=== PATIENT | male | born 1975 | race Caucasian/White ===

== ENCOUNTER 2016-03-20 14:25 | Emergency (ER) | payer OTHER ==
[~2016-03-20] VITALS: Ht 195.6 cm; Wt 110.7 kg
[~2016-03-20 14:25] MED LIST: ADVIL PM1 TABLET PO; AMLODIPINE BESYL5 MG PO; ASPIR 8181 M1 PO; FOLIC ACID1 MG PO; LIBRIUM25 MG PO; LOSARTAN POTAS100 MG PO; METOPROLOL SUCC50 MG PO; PRILOSEC OTC20 MG PO; TRIBENZOR 40-51 EAC5 PO; VITAMIN B-1100 MG PO
[2016-03-20 15:38] LABS: ADD MIUA? YES; BILIRUBIN MODERATE; BLOOD NEGATIVE; GLUCOSE (STRIP) NEGATIVE; KETONES 15; LEUKOCYTES NEGATIVE; NITRITE POSITIVE; PROTEIN (STRIP) 100; SPECIFIC GRAVITY 1.032 (1.000-1.030); UROBILINOGEN >= 8.0 MG/DL (0.2-1.0)
[2016-03-20 15:40] LABS: COLOR ORANGE ((YELLOW))
[2016-03-20 15:55] LABS: AMPHETAMINE NEGATIVE (500 ng/mL); BARBITURATES NEGATIVE (200 ng/mL); BENZODIAZEPINES NEGATIVE (150 ng/mL); COCAINE NEGATIVE (150 ng/mL); INTERNAL CONTROLS VALID? YES; METHADONE NEGATIVE (200 ng/mL); METHAMPHETAMINE NEGATIVE (500 ng/mL); OPIATES (MORPHINE) NEGATIVE (100 ng/mL); OXYCODONE NEGATIVE (100 ng/mL); PHENCYCLIDINE NEGATIVE (25 ng/mL); PROPOXYPHENE NEGATIVE (300 ng/mL); THC CANNABINOIDS NEGATIVE (50 ng/mL); TRICYCLIC ANTIDEPRESSANTS NEGATIVE (300 ng/mL)
[2016-03-20 15:58] LABS: ICTOTEST POSITIVE
[2016-03-20 15:58] LABS: CHLORIDE 99 mEq/L (99-109); POTASSIUM 2.7 mEq/L (3.7-5.4); SODIUM 142 mEq/L (136-147)
[2016-03-20 16:00] LABS: GLUCOSE 129 mg/dL (70-99)
[2016-03-20 16:01] LABS: ANION GAP 20 MEQ/L (2-14)
[2016-03-20 16:02] LABS: TOTAL BILIRUBIN 1.8 mg/dL (0.0-1.0)
[2016-03-20 16:03] LABS: SERUM ETHYL ALCOHOL 341 mg/dL
[2016-03-20 16:04] LABS: ALKALINE PHOSPHATASE 123 IU/L (3-129); GFR ESTIMATE (CALCULATED) > 59 mL/min/
[2016-03-20 16:05] LABS: UREA NITROGEN (BUN) 8 mg/dL (9-23)
[2016-03-20 16:39] LABS: BACTERIA 2+ /HPF; CASTS NONE SEEN /LPF; CRYSTALS NONE SEEN; EPITHELIAL CELLS RARE /HPF; MUCUS RARE /LPF; RED BLOOD CELLS 0-5 /HPF (0-5); WHITE BLOOD CELLS 0-5 /HPF (0-5)
[2016-03-20] MEDS ORDERED: LIBRIUM25 MG PO (18:48)
[2016-03-20] MEDS ORDERED: CEFPODOXIME PR100 MG PO (18:50)
[2016-03-20 20:09] VITALS: BP 108/72
== END 2016-03-20 20:15 | disposition home or self-care (01) ==
LOC: EXP 14:25 → EME 14:25 → EXP 20:15
PROVIDERS: Physician Assistant
DX: F10.229 Alcohol dependence with intoxication, unspecified (principal); R20.0 Anesthesia of skin; R05 Cough; Y90.8 Blood alcohol level of 240 mg/100 ml or more; I10 Essential (primary) hypertension
CPT/HCPCS: 80053; 81003; 99281; 99283; G0480

== ENCOUNTER 2016-06-13 02:15 | Observation (INO) | payer OTHER ==
[~2016-06-13] VITALS: Ht 195.6 cm; Wt 113.6 kg
[~2016-06-13 02:15] MED LIST changes: +CEFPODOXIME PR100 MG PO
[2016-06-13 02:58] LABS: HEMATOCRIT 37.6 % (38.0-50.0); MCH 36.7 PG (29.0-34.0); MCV 99.2 FL (86-99); MEAN PLAT.VOLUME 11.2 uM^3 (9.0-12.4); PLATELET COUNT 113 K/uL (156-360); RBC DIS.WIDTH-SD 57.8 % (39-53); RED BLOOD COUNT 3.79 M/uL (4.00-5.50); WHITE BLOOD COUNT 3.5 K/uL (4.1-10.2)
[2016-06-13 03:08] LABS: CHLORIDE 92 mEq/L (99-109); POTASSIUM 3.3 mEq/L (3.7-5.4); SODIUM 135 mEq/L (136-147)
[2016-06-13 03:10] LABS: GLUCOSE 101 mg/dL (70-99)
[2016-06-13 03:11] LABS: ANION GAP 25 MEQ/L (2-14)
[2016-06-13 03:12] LABS: TOTAL BILIRUBIN 3.1 mg/dL (0.0-1.0)
[2016-06-13 03:14] LABS: ALKALINE PHOSPHATASE 139 IU/L (3-129); GFR ESTIMATE (CALCULATED) > 59 mL/min/
[2016-06-13 03:15] LABS: UREA NITROGEN (BUN) 6 mg/dL (9-23)
[2016-06-13 03:17] LABS: LIPASE 77 U/L (1.0-51.0)
[2016-06-13 04:32] LABS: CREATINE KINASE 299 IU/L (1-294)
[2016-06-13 04:45] LABS: ADD MIUA? YES; BILIRUBIN SMALL; BLOOD NEGATIVE; COLOR AMBER ((YELLOW)); GLUCOSE (STRIP) NEGATIVE; KETONES 20; LEUKOCYTES NEGATIVE; NITRITE NEGATIVE; PROTEIN (STRIP) 30; SPECIFIC GRAVITY 1.014 (1.000-1.030)
[2016-06-13 04:50] LABS: BACTERIA RARE /HPF; EPITHELIAL CELLS RARE /HPF; HYALINE CASTS 0-5 /LPF; MUCUS TRACE /LPF; RED BLOOD CELLS 0-5 /HPF (0-5); UCUL ADDED? NO; WHITE BLOOD CELLS 0-5 /HPF (0-5)
[2016-06-13] MEDS ORDERED: LIBRIUM25 MG PO (05:09)
[2016-06-13] MEDS ORDERED: ZOFRAN4 MG PO (05:09)
[2016-06-13] MEDS ORDERED: PERCOCET 5/31 TABLET PO (07:45)
[2016-06-13] MEDS ORDERED: METOPROLOL SUCC50 MG PO (07:45)
[2016-06-13] MEDS ORDERED: [UNRECOGNIZED DRUG - OTHER] PO (07:46)
[2016-06-13] MEDS ORDERED: ALFUZOSIN HCL10 MG PO (07:46)
[2016-06-13] MEDS ORDERED: TRIBENZOR 40-51 EAC5 PO (08:11)
[2016-06-13 08:17] LABS: MAGNESIUM 1.6 mg/dL (1.3-2.7)
[2016-06-13 09:15] VITALS: BP 158/92
[2016-06-13 11:53] LABS: SERUM ETHYL ALCOHOL < 10 mg/dL
[2016-06-13 12:17] VITALS: BP 161/71
[2016-06-13 19:00] VITALS: BP 149/93
[2016-06-13 23:38] VITALS: BP 130/90
[2016-06-14 02:16] LABS: CHLORIDE 100 mEq/L (99-109); SODIUM 138 mEq/L (136-147)
[2016-06-14 02:19] LABS: GLUCOSE 105 mg/dL (70-99)
[2016-06-14 02:20] LABS: ANION GAP 12 MEQ/L (2-14)
[2016-06-14 02:21] LABS: MAGNESIUM 1.2 mg/dL (1.3-2.7); POTASSIUM 2.1 mEq/L (3.7-5.4)
[2016-06-14 02:23] LABS: ALKALINE PHOSPHATASE 112 IU/L (3-129); GFR ESTIMATE (CALCULATED) > 59 mL/min/
[2016-06-14 02:24] LABS: UREA NITROGEN (BUN) 5 mg/dL (9-23)
[2016-06-14 02:25] LABS: DIRECT BILIRUBIN 1.9 mg/dL (0.0-0.3)
[2016-06-14 05:48] LABS: ANION GAP 7 MEQ/L (2-14); CHLORIDE 98 MEQ/L (99-109); GFR ESTIMATE (CALCULATED) > 59 mL/min/; GLUCOSE 108 mg/dL (70-99); SAMPLE HEMOLYSIS CHECK 0; SAMPLE ICTERIC CHECK 0; SAMPLE LIPEMIA CHECK 0; SODIUM 139 MEQ/L (136-147); UREA NITROGEN (BUN) 5 mg/dL (9-23)
[2016-06-14 05:54] LABS: POTASSIUM 2.9 MEQ/L (3.7-5.4)
[2016-06-14 09:10] LABS: MAGNESIUM 2.1 mg/dl (1.3-2.7)
[2016-06-14 11:00] VITALS: BP 172/96
[2016-06-14 12:35] LABS: MAGNESIUM 2.3 mg/dl (1.3-2.7); POTASSIUM 2.6 MEQ/L (3.7-5.4)
[2016-06-14 13:45] VITALS: BP 133/94
[2016-06-14 16:32] VITALS: BP 140/92
[2016-06-14 19:00] VITALS: BP 142/90
[2016-06-14 23:58] VITALS: BP 137/91
[2016-06-15 03:55] VITALS: BP 130/88
[2016-06-15 08:00] VITALS: BP 149/97
== END 2016-06-15 09:33 | disposition home or self-care (01) ==
LOC: EME 02:15 → EDOF 07:43 → 5WEST 07:43 → EDOF 07:43 → 5WEST 08:51
PROVIDERS: Hospitalist; Internal Medicine; Physician Assistant
DX: F10.231 Alcohol dependence with withdrawal delirium (principal); M54.5 Low back pain; I10 Essential (primary) hypertension; K21.9 Gastro-esophageal reflux disease without esophagitis; E86.0 Dehydration; K80.20 Calculus of gallbladder without cholecystitis without obstruction; D72.819 Decreased white blood cell count, unspecified; D69.6 Thrombocytopenia, unspecified; E87.6 Hypokalemia; K76.0 Fatty (change of) liver, not elsewhere classified; R16.0 Hepatomegaly, not elsewhere classified; R45.1 Restlessness and agitation
CPT/HCPCS: 74176; 74183; 80048; 80053; 81003; 82140; 82248; 82550; 83690; 83735; 84100; 84132 91; 85027; 93005; 99281; 99284; G0378; G0480; J1630; J1650; J1885; J2060; J2405; J3411; J3475; J7030; J7040; J7050

== ENCOUNTER 2016-09-13 13:29 | Emergency (ER) | payer OTHER ==
[~2016-09-13] VITALS: Ht 195.6 cm; Wt 104.7 kg
[~2016-09-13 13:29] MED LIST changes: +ALFUZOSIN HCL10 MG PO; +PERCOCET 5/31 TABLET PO; +ZOFRAN4 MG PO; +[UNRECOGNIZED DRUG - OTHER] PO
[2016-09-13 14:58] LABS: EOSINOPHIL (%) 0.3 % (0-5); HEMATOCRIT 42.2 % (38.0-50.0); LYMPHOCYTE COUNT 0.9 K/uL (1.0-2.8); MCH 35.8 PG (29.0-34.0); MCHC 35.8 G/DL (30.0-36.0); MEAN PLAT.VOLUME 9.1 uM^3 (9.0-12.4); MONOCYTE (%) 17.9 % (3-12); MONOCYTE COUNT 0.6 K/uL (0-0.8); NEUTROPHIL (%) 56.7 % (45-76); PLATELET COUNT 102 K/uL (156-360); RBC DIS.WIDTH-CV 12.1 % (11.8-14.6); RBC DIS.WIDTH-SD 44.8 % (39-53); RED BLOOD COUNT 4.22 M/uL (4.00-5.50); WHITE BLOOD COUNT 3.5 K/uL (4.1-10.2)
[2016-09-13 15:11] LABS: CHLORIDE 99 mEq/L (99-109); SODIUM 140 mEq/L (136-147)
[2016-09-13 15:13] LABS: GLUCOSE 92 mg/dL (70-99)
[2016-09-13 15:14] LABS: ANION GAP 17 MEQ/L (2-14)
[2016-09-13 15:16] LABS: SERUM ETHYL ALCOHOL 394 mg/dL
[2016-09-13 15:17] LABS: GFR ESTIMATE (CALCULATED) > 59 mL/min/
[2016-09-13 15:18] LABS: UREA NITROGEN (BUN) 6 mg/dL (9-23)
[2016-09-13 15:43] LABS: ADD MIUA? NO; BILIRUBIN NEGATIVE; BLOOD NEGATIVE; COLOR YELLOW ((YELLOW)); GLUCOSE (STRIP) NEGATIVE; KETONES NEGATIVE; LEUKOCYTES NEGATIVE; NITRITE NEGATIVE; PROTEIN (STRIP) NEGATIVE; SPECIFIC GRAVITY 1.004 (1.000-1.030)
[2016-09-13 16:03] LABS: AMPHETAMINE NEGATIVE (500 ng/mL); BARBITURATES NEGATIVE (200 ng/mL); BENZODIAZEPINES PRESUMPTIVE POSITIVE (150 ng/mL); COCAINE NEGATIVE (150 ng/mL); INTERNAL CONTROLS VALID? YES; METHADONE NEGATIVE (200 ng/mL); METHAMPHETAMINE NEGATIVE (500 ng/mL); OPIATES (MORPHINE) NEGATIVE (100 ng/mL); OXYCODONE NEGATIVE (100 ng/mL); PHENCYCLIDINE NEGATIVE (25 ng/mL); PROPOXYPHENE NEGATIVE (300 ng/mL); THC CANNABINOIDS NEGATIVE (50 ng/mL); TRICYCLIC ANTIDEPRESSANTS NEGATIVE (300 ng/mL)
[2016-09-13 16:04] LABS: ADD MEDTOX COMMENT Y
[2016-09-13 16:38] LABS: BENZODIAZEPINES, URINE SCREEN POSITIVE (200 ng/mL)
[2016-09-13 20:08] VITALS: BP 152/99
== END 2016-09-13 20:09 | disposition left against medical advice (07) ==
LOC: EME 13:29
PROVIDERS: Emergency Medicine
DX: F10.129 Alcohol abuse with intoxication, unspecified (principal); E87.6 Hypokalemia; I10 Essential (primary) hypertension; K21.9 Gastro-esophageal reflux disease without esophagitis
CPT/HCPCS: 80048; 81003; 84999; 85025; 99281; 99285; G0480

== ENCOUNTER 2017-01-21 12:53 | Emergency (ER) | payer OTHER ==
[2017-01-21] MEDS ORDERED: FLUOXETINE HCL20 MG PO (20:21)
[2017-01-21] MEDS ORDERED: TYLENOL EXTRA500 MG PO (20:22)
[2017-01-21] MEDS ORDERED: FISH OIL 1,0001 EAC7 PO (20:24)
[2017-01-21] MEDS ORDERED: ASCORBIC ACID100 MG PO (20:25)
== END 2017-01-21 14:29 | disposition left against medical advice (07) ==
LOC: EME 12:53
DX: Z53.21 Procedure and treatment not carried out due to patient leaving prior to being seen by health care provider (principal)

== ENCOUNTER 2017-01-21 15:36 | Inpatient (IN) | payer OTHER ==
[~2017-01-21] VITALS: Ht 195.6 cm; Wt 106.6 kg
[2017-01-21 16:11] LABS: HEMATOCRIT 41.7 % (38.0-50.0); MCH 34.6 PG (29.0-34.0); MCHC 36.7 G/DL (30.0-36.0); MCV 94.3 FL (86-99); MEAN PLAT.VOLUME 8.9 uM^3 (9.0-12.4); PLATELET COUNT 165 K/uL (156-360); RBC DIS.WIDTH-CV 12.8 % (11.8-14.6); RED BLOOD COUNT 4.42 M/uL (4.00-5.50); WHITE BLOOD COUNT 5.5 K/uL (4.1-10.2)
[2017-01-21 16:21] LABS: CHLORIDE 99 mEq/L (99-109); POTASSIUM 3.2 mEq/L (3.7-5.4); SODIUM 140 mEq/L (136-147)
[2017-01-21 16:22] LABS: GLUCOSE 186 mg/dL (70-99)
[2017-01-21 16:24] LABS: ANION GAP 16 MEQ/L (2-14)
[2017-01-21 16:25] LABS: SERUM ETHYL ALCOHOL 374 mg/dL
[2017-01-21 16:26] LABS: GFR ESTIMATE (CALCULATED) > 59 mL/min/
[2017-01-21 16:27] LABS: UREA NITROGEN (BUN) 6 mg/dL (9-23)
[2017-01-21 16:32] LABS: TROP-I INTERPRETATION NEGATIVE; TROPONIN-I < 0.01 ng/mL (0.0-0.30)
[2017-01-21 20:10] LABS: TOTAL BILIRUBIN 0.5 mg/dL (0.0-1.0)
[2017-01-21 20:11] LABS: ALKALINE PHOSPHATASE 143 IU/L (3-129)
[2017-01-21 20:14] LABS: DIRECT BILIRUBIN 0.4 mg/dL (0.0-0.3)
[2017-01-21 20:15] LABS: LIPASE 96 U/L (1.0-51.0)
[2017-01-21] MEDS ORDERED: FLUOXETINE HCL20 MG PO (20:21)
[2017-01-21] MEDS ORDERED: TYLENOL EXTRA500 MG PO (20:22)
[2017-01-21] MEDS ORDERED: FISH OIL 1,0001 EAC7 PO (20:24)
[2017-01-21] MEDS ORDERED: ASCORBIC ACID100 MG PO (20:25)
[2017-01-21 21:21] LABS: AMPHETAMINE NEGATIVE (500 ng/mL); BARBITURATES NEGATIVE (200 ng/mL); BENZODIAZEPINES NEGATIVE (150 ng/mL); COCAINE NEGATIVE (150 ng/mL); INTERNAL CONTROLS VALID? YES; METHADONE NEGATIVE (200 ng/mL); METHAMPHETAMINE NEGATIVE (500 ng/mL); OPIATES (MORPHINE) NEGATIVE (100 ng/mL); OXYCODONE NEGATIVE (100 ng/mL); PHENCYCLIDINE NEGATIVE (25 ng/mL); PROPOXYPHENE NEGATIVE (300 ng/mL); THC CANNABINOIDS NEGATIVE (50 ng/mL); TRICYCLIC ANTIDEPRESSANTS NEGATIVE (300 ng/mL)
[2017-01-21 23:30] VITALS: BP 126/73
[2017-01-21 23:52] LABS: TROP-I INTERPRETATION NEGATIVE; TROPONIN-I 0.01 ng/mL (0.0-0.30)
[2017-01-22 03:16] VITALS: BP 137/73
[2017-01-22 05:29] LABS: HEMATOCRIT 36.3 % (38.0-50.0); MCH 33.7 PG (29.0-34.0); MCHC 35.5 G/DL (30.0-36.0); MCV 94.8 FL (86-99); MEAN PLAT.VOLUME 9.1 uM^3 (9.0-12.4); PLATELET COUNT 125 K/uL (156-360); RBC DIS.WIDTH-CV 13.1 % (11.8-14.6); RED BLOOD COUNT 3.83 M/uL (4.00-5.50); WHITE BLOOD COUNT 3.8 K/uL (4.1-10.2)
[2017-01-22 05:35] LABS: PROTHROMBIN TIME 10.9 SEC (10.2-12.9)
[2017-01-22 05:48] LABS: TROP-I INTERPRETATION NEGATIVE; TROPONIN-I 0.01 ng/mL (0.0-0.30)
[2017-01-22 05:54] LABS: ALKALINE PHOSPHATASE 102 IU/L (3-129); ANION GAP 13 MEQ/L (2-14); CHLORIDE 100 MEQ/L (99-109); GFR ESTIMATE (CALCULATED) > 59 mL/min/; GLUCOSE 86 mg/dL (70-99); POTASSIUM 2.9 MEQ/L (3.7-5.4); SAMPLE HEMOLYSIS CHECK 0; SAMPLE ICTERIC CHECK 0; SAMPLE LIPEMIA CHECK 0; SODIUM 142 MEQ/L (136-147); TOTAL BILIRUBIN 0.6 MG/DL (0.0-1.0); UREA NITROGEN (BUN) 7 mg/dL (9-23)
[2017-01-22 07:19] VITALS: BP 130/64
[2017-01-22 12:21] VITALS: BP 137/73
[2017-01-22 16:14] VITALS: BP 131/73
[2017-01-22 19:45] VITALS: BP 153/91
[2017-01-23] VITALS: BP 140/70
[2017-01-23 05:51] LABS: EOSINOPHIL (%) 0.8 % (0-5); HEMATOCRIT 35.3 % (38.0-50.0); IMMATURE GRANULOCYTE (%) 0.5 % (0.0-0.7); INSTRUMENT ABS NEUTROPHIL CT 2.1 K/uL; MCH 34.4 PG (29.0-34.0); MCHC 35.7 G/DL (30.0-36.0); MCV 96.4 FL (86-99); MEAN PLAT.VOLUME 9.5 uM^3 (9.0-12.4); MONOCYTE (%) 15.8 % (3-12); MONOCYTE COUNT 0.6 K/uL (0-0.8); NEUTROPHIL (%) 56.7 % (45-76); NEUTROPHIL COUNT 2.1 K/uL (1.8-6.4); PLATELET COUNT 114 K/uL (156-360); RBC DIS.WIDTH-CV 13.1 % (11.8-14.6); RBC DIS.WIDTH-SD 46.4 % (39-53); RED BLOOD COUNT 3.66 M/uL (4.00-5.50); WHITE BLOOD COUNT 3.7 K/uL (4.1-10.2)
[2017-01-23 05:56] LABS: ANION GAP 7 MEQ/L (2-14); CHLORIDE 97 MEQ/L (99-109); GFR ESTIMATE (CALCULATED) > 59 mL/min/; POTASSIUM 2.8 MEQ/L (3.7-5.4); SAMPLE HEMOLYSIS CHECK 0; SAMPLE ICTERIC CHECK 0; SAMPLE LIPEMIA CHECK 0; SODIUM 138 MEQ/L (136-147); UREA NITROGEN (BUN) 4 mg/dL (9-23)
[2017-01-23 05:57] LABS: GLUCOSE 112 mg/dL (70-99)
[2017-01-23 08:34] VITALS: BP 152/86
[2017-01-23 11:56] VITALS: BP 164/96
[2017-01-23 16:32] VITALS: BP 160/103
[2017-01-23 19:20] VITALS: BP 162/99
[2017-01-23 23:48] VITALS: BP 154/88
[2017-01-24 04:08] VITALS: BP 141/80
[2017-01-24 06:42] LABS: ANION GAP 7 MEQ/L (2-14); CHLORIDE 102 MEQ/L (99-109); GFR ESTIMATE (CALCULATED) > 59 mL/min/; GLUCOSE 97 mg/dL (70-99); SAMPLE HEMOLYSIS CHECK 0; SAMPLE ICTERIC CHECK 0; SAMPLE LIPEMIA CHECK 0; SODIUM 139 MEQ/L (136-147); UREA NITROGEN (BUN) 3 mg/dL (9-23)
[2017-01-24 06:55] LABS: POTASSIUM 3.5 MEQ/L (3.7-5.4)
[2017-01-24 08:37] VITALS: BP 144/90
[2017-01-24] MEDS ORDERED: CHEWABLE-VITE1 EACH PO (09:23)
[2017-01-24] MEDS ORDERED: FOLIC ACID1 MG PO (09:23)
[2017-01-24] MEDS ORDERED: LIBRIUM25 MG PO (09:23)
[2017-01-24] MEDS ORDERED: THIAMINE HCL100 MG PO (09:23)
[2017-01-24] MEDS ORDERED: K-DUR10 MEQ PO (09:25)
== END 2017-01-24 11:32 | disposition home or self-care (01) | DRG 897 ==
LOC: EME 15:36 → EDOF 20:56 → 5WEST 20:56 → EDOF 20:56 → ENRESERV 20:57 → 5WEST 22:55
PROVIDERS: Internal Medicine; Physician Assistant
DX: F10.230 Alcohol dependence with withdrawal, uncomplicated (principal); K29.20 Alcoholic gastritis without bleeding; F10.220 Alcohol dependence with intoxication, uncomplicated; Y90.8 Blood alcohol level of 240 mg/100 ml or more; E87.6 Hypokalemia; I10 Essential (primary) hypertension; K21.9 Gastro-esophageal reflux disease without esophagitis; F17.220 Nicotine dependence, chewing tobacco, uncomplicated; R07.89 Other chest pain; G43.909 Migraine, unspecified, not intractable, without status migrainosus
CPT/HCPCS: 71020; 71275; 74174; 76705; 80048; 80053; 80076; 83690; 83735; 84484; 85025; 85027; 85610; 93005; 93306; 99281; 99285; G0378; G0480; J1650; J2060; J3411; J3475; J3480; J7030

== ENCOUNTER 2017-01-26 10:56 | Emergency (ER) | payer OTHER ==
[~2017-01-26] VITALS: Ht 195.6 cm; Wt 108.5 kg
[~2017-01-26 10:56] MED LIST changes: +ASCORBIC ACID100 MG PO; +CHEWABLE-VITE1 EACH PO; +FISH OIL 1,0001 EAC7 PO; +FLUOXETINE HCL20 MG PO; +K-DUR10 MEQ PO; +THIAMINE HCL100 MG PO; +TYLENOL EXTRA500 MG PO
[2017-01-26 12:39] LABS: HEMATOCRIT 40.1 % (38.0-50.0); MCH 34.7 PG (29.0-34.0); MCHC 35.2 G/DL (30.0-36.0); MCV 98.8 FL (86-99); PLATELET COUNT 144 K/uL (156-360); RBC DIS.WIDTH-CV 13.9 % (11.8-14.6); RBC DIS.WIDTH-SD 49.8 % (39-53); RED BLOOD COUNT 4.06 M/uL (4.00-5.50); WHITE BLOOD COUNT 5.8 K/uL (4.1-10.2)
[2017-01-26 12:51] LABS: CHLORIDE 107 mEq/L (99-109); POTASSIUM 3.8 mEq/L (3.7-5.4); SODIUM 142 mEq/L (136-147)
[2017-01-26 12:53] LABS: GLUCOSE 118 mg/dL (70-99)
[2017-01-26 12:54] LABS: ANION GAP 10 MEQ/L (2-14)
[2017-01-26 12:55] LABS: TOTAL BILIRUBIN 0.4 mg/dL (0.0-1.0)
[2017-01-26 12:56] LABS: SERUM ETHYL ALCOHOL 257 mg/dL
[2017-01-26 12:57] LABS: ALKALINE PHOSPHATASE 109 IU/L (3-129); GFR ESTIMATE (CALCULATED) > 59 mL/min/ (58.99-99999)
[2017-01-26 12:58] LABS: UREA NITROGEN (BUN) 9 mg/dL (9-23)
[2017-01-26 13:00] LABS: TROP-I INTERPRETATION NEGATIVE; TROPONIN-I < 0.01 ng/mL (0.0-0.30)
[2017-01-26 13:31] LABS: PROTHROMBIN TIME 10.8 SEC (10.2-12.9); PTT 25.2 SEC (25-37)
[2017-01-26 15:57] LABS: TROP-I INTERPRETATION NEGATIVE; TROPONIN-I < 0.01 ng/mL (0.0-0.30)
[2017-01-26 17:10] VITALS: BP 102/57
== END 2017-01-26 17:27 | disposition home or self-care (01) ==
LOC: EME 10:56
PROVIDERS: Emergency Medicine; Nurse Practitioner Family
DX: F10.229 Alcohol dependence with intoxication, unspecified (principal); R07.9 Chest pain, unspecified; I10 Essential (primary) hypertension; G43.909 Migraine, unspecified, not intractable, without status migrainosus; K21.9 Gastro-esophageal reflux disease without esophagitis
CPT/HCPCS: 71020; 80053; 84484; 85027; 85610; 85730; 93005; 99281; 99284; G0480; J7030